=== PATIENT | male | born 1945 | race Caucasian/White ===

== ENCOUNTER 2017-08-11 14:21 | Emergency (ER) | payer MEDICARE, BC ==
[~2017-08-11] VITALS: Ht 172.7 cm; Wt 65.8 kg
[~2017-08-11 14:21] MED LIST: ADVAIR 100-501 EACH; LISINOPRIL10 MG PO; OMEPRAZOLE20 MG PO
[2017-08-11] MEDS ORDERED: ACETAMINOPHEN 1000 MG/100 ML IV STA (15:30)
[2017-08-11] MEDS ORDERED: MORPHINE SULFATE 2 MG/ML SYR IV STA (15:39)
[2017-08-11] MEDS ORDERED: ONDANSETRON HCL INJ 2 MG/ML VIAL IV ONE (16:00)
[2017-08-11 16:07] LABS: BASOPHILS % 0.4 % (0.0-1.0); EOSINOPHILS % 0.1 % (0.0-6.0); HEMATOCRIT 44.8 % (38.2-49.6); HEMOGLOBIN 15.9 g/dL (14.0-18.0); LYMPHOCYTES # (AUTO) 0.7 (1.0-3.2); LYMPHOCYTES % 8.9 % (18.0-39.1); MEAN CORPUSCULAR HEMOGLOBIN 32.5 pg (28-32); MEAN CORPUSCULAR HGB CONC 35.5 g/dL (31-35); MEAN CORPUSCULAR VOLUME 91.6 fL (81-99); MONOCYTES # (AUTO) 0.8 (0.2-0.8); NEUTROPHILS # (AUTO) 6.1 (2.1-6.9); NEUTROPHILS % 80.3 % (38.7-80.0); PLATELET COUNT 226 x10e3/uL (140-360); RED BLOOD COUNT 4.89 x10e6/uL (4.3-5.7); RED CELL DISTRIBUTION WIDTH 13.9 % (11.7-14.4)
[2017-08-11 16:15] LABS: INR 0.93; PROTHROMBIN TIME 12.9 seconds (11.9-14.5)
[2017-08-11 16:16] LABS: PARTIAL THROMBOPLASTIN TIME 28.5 seconds (23.8-35.5)
[2017-08-11 16:28] LABS: ALANINE AMINOTRANSFERASE 28 IU/L (0-55); ALBUMIN/GLOBULIN RATIO 1.1 (0.8-2.0); ALKALINE PHOSPHATASE 88 IU/L (40-150); AMYLASE 73 U/L (25-125); ANION GAP 15.9 mmol/L (8-16); BLOOD UREA NITROGEN 17 mg/dL (7-26); BUN/CREATININE RATIO 16 (6-25); CALCIUM 9.9 mg/dL (8.4-10.2); CARBON DIOXIDE 22 mmol/L (22-29); CHLORIDE 93 mmol/L (98-107); CREATINE KINASE 1190 IU/L (30-200); CREATININE, SERUM 1.04 mg/dL (0.72-1.25); EST GLOMERULAR FILTRATION RATE > 60 ML/MIN (60-); GLUCOSE 84 mg/dL (74-118); LIPASE 35 U/L (8-78); POTASSIUM 3.9 mmol/L (3.5-5.1); SODIUM 127 mmol/L (136-145)
--- NOTE | 2017-08-11 16:28 | Diagnostic Imaging Report ---
EXAMINATION: CHEST 2 VIEWS INDICATION: \S\fever \[id number] \S\[id number] COMPARISON: None FINDINGS: PA and lateral views TUBES and LINES: None. LUNGS: Lungs are well inflated. Lungs are clear. There is no evidence of pneumonia or pulmonary edema. PLEURA: No pleural effusion or pneumothorax. HEART AND MEDIASTINUM: The cardiomediastinal silhouette is unremarkable. Surgical clips overlie the posterior midline soft tissues. BONES AND SOFT TISSUES: No acute osseous lesion. Compression deformity of two lower thoracic vertebral bodies. Kyphoplasty cement in multiple upper lumbar vertebral bodies. Soft tissues are unremarkable. UPPER ABDOMEN: No free air under the diaphragm. IMPRESSION: No acute thoracic abnormality. Signed by: DR. Epifanio Galvan MD on 08/11/2017 4:25 PM
[2017-08-11 16:34] LABS: TROPONIN I 0.011 ng/mL (0-0.300)
--- NOTE | 2017-08-11 18:54 | Diagnostic Imaging Report ---
EXAM: CT Abdomen and Pelvis WITH contrast INDICATION: Abdominal pain and fever COMPARISON: Abdominal ultrasound from 09/17/2012 TECHNIQUE: Abdomen and pelvis were scanned utilizing a multidetector helical scanner from the lung base to the pubic symphysis after administration of IV contrast. Coronal and sagittal reformations were obtained. Routine protocol was performed. Scan was performed when during portal venous phase. IV CONTRAST: 100 mL of Isovue 370 ORAL CONTRAST: Water RADIATION DOSE: Total DLP: 222.7 mGy*cm Estimated effective dose: (DLP x 0.015 x size factor) mSv COMPLICATIONS: None FINDINGS: LINES and TUBES: None. LOWER THORAX: Left lower lobe calcified granuloma. Mild scarring in the right lower lobe. Hyperinflated lungs. Moderately sized hiatal hernia. HEPATOBILIARY: No focal hepatic lesions. No biliary ductal dilation. GALLBLADDER: No radio-opaque stones or sludge. No wall thickening. SPLEEN: No splenomegaly. Calcified granulomas. PANCREAS: No focal masses or ductal dilatation. ADRENALS: No adrenal nodules KIDNEYS/URETERS: Kidneys enhance symmetrically. No hydronephrosis. No cystic or solid mass lesions. No stones. GI TRACT: No abnormal distention, wall thickening, or evidence of bowel obstruction. Scattered diverticulosis throughout the sigmoid colon with associated wall thickening and minimal surrounding fat stranding, better seen on coronal image 75. No surrounding fluid collections. Appendix is normal. No fat stranding surrounding the appendix. This is better seen on coronal image 54. PELVIC ORGANS/BLADDER: Unremarkable. LYMPH NODES: No lymphadenopathy. VESSELS: Tortuous thoracic aorta with associated moderate calcifications. Small partially thrombosed fusiform aneurysm of the infrarenal abdominal aorta measuring up to 3.7 cm. Moderate atherosclerotic calcifications of the pelvic arteries. PERITONEUM / RETROPERITONEUM: No free air or fluid. BONES: Multiple wedge compression deformities in the lower thoracic and lumbar spine, worse at T12. Kyphoplasty at L3 and L4 vertebral bodies. SOFT TISSUES: Unremarkable. IMPRESSION: 1. Diverticulosis throughout the sigmoid colon with associated mild wall thickening may represent an early sign of diverticulitis. 2. Infrarenal abdominal aortic aneurysm (3.7 cm). Recommend follow-up CTA abdomen and pelvis in 6-12 months. Signed by: Dr. Niki Gonzales M.D. on 08/11/2017 6:50 PM
[2017-08-11] MEDS ORDERED: SODIUM CHLORIDE 0.9% 50ML 50 ML ONE (22:37)
[2017-08-11] MEDS ORDERED: IOPAMIDOL 370 MG/ML 200 ML INFUS..BTL INJ ONE (22:37)
== END 2017-08-11 20:21 | disposition home or self-care (01) ==
LOC: ER 14:21
DX: R50.9 Fever, unspecified (principal); R05 Cough; R10.11 Right upper quadrant pain; R10.84 Generalized abdominal pain; K57.30 Diverticulosis of large intestine without perforation or abscess without bleeding; I71.4 Abdominal aortic aneurysm, without rupture; I10 Essential (primary) hypertension; J98.4 Other disorders of lung
CPT/HCPCS: 36415; 71020; 74177; 80053; 82150; 82550; 82553; 83605; 83690; 84484; 85025; 85610; 85730; 87040; 87400; 93005; 99284; J2270; J2405; Q9967

== ENCOUNTER 2020-02-03 16:50 | Inpatient (IN) | payer MEDICARE, BC, OTHER ==
[~2020-02-03] VITALS: Ht 170.2 cm; Wt 65.8 kg
[2020-02-03] MEDS ORDERED: SODIUM CHLORIDE 0.9% 1000ML 1,000 ML IV STA (17:34)
[2020-02-03 18:29] LABS: BASOPHILS # (AUTO) 0.1 (0.0-0.1); BASOPHILS % 0.5 % (0.0-1.0); EOSINOPHILS # (AUTO) 0.2 (0.0-0.4); EOSINOPHILS % 1.5 % (0.0-6.0); HEMATOCRIT 42.3 % (38.2-49.6); HEMOGLOBIN 14.2 g/dL (14.0-18.0); LYMPHOCYTES # (AUTO) 1.4 (1.0-3.2); LYMPHOCYTES % 13.6 % (18.0-39.1); MEAN CORPUSCULAR HEMOGLOBIN 30.5 pg (28-32); MEAN CORPUSCULAR HGB CONC 33.6 g/dL (31-35); MONOCYTES % 9.9 % (4.4-11.3); NEUTROPHILS # (AUTO) 7.4 (2.1-6.9); NEUTROPHILS % 74.1 % (38.7-80.0); PLATELET COUNT 255 x10e3/uL (140-360); RED BLOOD COUNT 4.65 x10e6/uL (4.3-5.7); RED CELL DISTRIBUTION WIDTH 13.2 % (11.7-14.4)
[2020-02-03 18:47] LABS: ALANINE AMINOTRANSFERASE 17 IU/L (0-55); ALBUMIN 3.8 g/dL (3.5-5.0); ALBUMIN/GLOBULIN RATIO 1.3 (0.8-2.0); ALKALINE PHOSPHATASE 69 IU/L (40-150); ANION GAP 10.7 mmol/L (8-16); BLOOD UREA NITROGEN 15 mg/dL (7-26); BUN/CREATININE RATIO 17 (6-25); CALCIUM 9.4 mg/dL (8.4-10.2); CARBON DIOXIDE 23 mmol/L (22-29); CHLORIDE 108 mmol/L (98-107); CREATINE KINASE 216 IU/L (30-200); CREATININE, SERUM 0.89 mg/dL (0.72-1.25); EST GLOMERULAR FILTRATION RATE > 60 ML/MIN (60-); GLUCOSE 99 mg/dL (74-118); POTASSIUM 3.7 mmol/L (3.5-5.1); SODIUM 138 mmol/L (136-145)
--- NOTE | 2020-02-03 18:56 | NUR ---
report given to Walt STARKEY.
--- NOTE | 2020-02-03 19:01 | Diagnostic Imaging Report ---
Examination: CT head without contrast Clinical Indication: Fall; syncope. Technique: Transaxial noncontrast images from the skull base through the vertex were obtained. Sagittal and coronal reformatted images were done. Dose modulation, iterative reconstruction, and/or weight based adjustment of the mA/kV was utilized to reduce the radiation dose to as low as reasonably achievable. Comparison: 2013 scans cannot be visualized. Findings: Scalp: No abnormalities. Bones: Intact. No fractures. No blastic or lytic lesions. Brain sulci: Appropriate for patient's age. Ventricles: Normal in size and configuration. No hydrocephalus. . Extra-axial space: No abnormalities. Parenchyma: There are subtle confluent areas of low-attenuation within subcortical and periventricular white matter, nonspecific, but could represent microvascular ischemic disease. Left caudate head and body tiny chronic lacunar infarcts. No masses, hemorrhage, or acute or chronic cortical based vascular insults. Suprasellar region: No abnormalities. Craniocervical junction: The foramen magnum is patent. No Chiari one malformation. Incidental findings: Atherosclerotic calcification of the cavernous and supraclinoid internal carotid and V4 segments of the bilateral vertebral arteries. Impression: 1. No acute intracranial finding. 2. Mild chronic microvascular ischemic change. Tiny chronic lacunar infarcts of the left caudate head and body. Signed by: Dr. Manasa Medina M.D. on 02/03/2020 6:58 PM
[2020-02-03 19:03] LABS: INR 0.89; PROTHROMBIN TIME 12.6 seconds (11.9-14.5)
--- NOTE | 2020-02-03 19:10 | Diagnostic Imaging Report ---
Examination: CT CERVICAL SPINE WO HISTORY:Neck pain and injury after fall. COMPARISON:None. TECHNIQUE: Multidetector helical axial images were obtained without contrast from the foramen magnum to T1. Coronal and sagittal reformatted images were done. Bone and soft tissue windows were evaluated. Dose modulation, iterative reconstruction, and/or weight based adjustment of the mA/kV was utilized to reduce the radiation dose to as low as reasonably achievable. FINDINGS: Alignment:Normal lordosis. Grade I anterolisthesis of C2 on C3 with severe left facet arthropathy. Minimal retrolisthesis of C4-C5 and C5-C6. Vertebrae: Normal height and density. No acute fracture, infection or neoplasm. Sclerosis of the C3 and C4 vertebrae. Disc space heights: Moderate height loss at C3-C4 and C4-C5. Caliber of spinal canal: Developmentally normal. Posterior fossa and craniocervical junction: Foramen magnum patent. No Chiari 1 malformation. Soft tissues: Atherosclerosis of the bilateral carotid bifurcations. Degenerative changes: Disc osteophytes from C3-C4 through C6-C7 without canal stenosis. No disc herniation. Visualized lung apices: Bilateral interstitial emphysema. IMPRESSION: No acute abnormalities. Signed by: Dr. Manasa Medina M.D. on 02/03/2020 7:06 PM
[2020-02-03 19:29] LABS: CLARITY,URINE CLEAR (CLEAR); COLOR,URINE YELLOW (YELLOW); LEUKOCYTE ESTERASE ,URINE NEGATIVE (NEGATIVE); NITRITE,URINE NEGATIVE (NEGATIVE); PROTEIN,URINE DIPSTICK NEGATIVE (NEGATIVE)
[2020-02-03 19:30] LABS: BACTERIA,URINE FEW /HPF; BILIRUBIN,URINE NEGATIVE (NEGATIVE); EPITHELIAL CELLS,URINE FEW /LPF; KETONES,URINE NEGATIVE (NEGATIVE); URINE UROBILINOGEN 0.2 mg/dL (0.2 - 1); WBC,URINE (MAN) 0-5 /HPF (0-5)
--- NOTE | 2020-02-03 19:43 | Diagnostic Imaging Report ---
EXAM: CT Chest WITHOUT contrast INDICATION: FALL, SYNCOPE, LEFT RIB PAIN COMPARISON: Chest radiographs from 08/11/2017 TECHNIQUE: Chest was scanned utilizing a multidetector helical scanner from the lung apex through the level of the adrenal glands without administration of IV contrast. Absence of intravenous contrast decreases sensitivity for detection of lymphadenopathy and vascular pathology. Coronal and sagittal reformations were obtained. Routine protocol was performed. IV CONTRAST: None COMPLICATIONS: None RADIATION DOSE: Total DLP: 1513.61 mGy*cm Estimated effective dose: (DLP x 0.014 x size factor) mSv CTDIvol has been reviewed. It is below the limits set by the Radiation Protocol Committee (RPC). Dose modulation, iterative reconstruction, and/or weight based adjustment of the mA/kV was utilized to reduce the radiation dose to as low as reasonably achievable. FINDINGS: LINES/ TUBES: None. LUNGS AND AIRWAYS: There is a spiculated nodule in the right upper lobe which measures approximately 9.5 x 8.5 cm (series 11 image 87). There are additional subcentimeter nodules in the left upper lobe (series 11 image 31, 67 and image 86). There are biapical pleural scarring. There are scattered calcified granulomas. There is background of paraseptal and centrilobular emphysematous changes. There are areas of reticulonodular opacities in the right lower lobe and lingular with tree-in-bud configuration. PLEURA: The pleural spaces are clear. HEART AND MEDIASTINUM: The thyroid gland is normal. No mediastinal, hilar or axillary lymphadenopathy. The heart is normal in size. There is no pericardial effusion. There is atherosclerotic calcification of the thoracic aortic arch and its branches as well as the coronary vessels. UPPER ABDOMEN: There is a moderately sized hiatal hernia. The start calcification of the proximal abdominal aorta and its branches. BONES: Multilevel degenerative disease of the spine. Additionally, there are chronic compression deformities of the thoracic and lumbar spine status vertebroplasty. Of the L2 vertebra. SOFT TISSUES: Unremarkable. IMPRESSION: 1. Spiculated nodule in the right upper lobe which measures approximately 9.5 x 8.5 cm. Recommend follow-up chest CT in 3 months to rule out malignancy. 2. Reticulonodular opacities in the right lower lobe and lingula in tree-in-bud configuration which may represent inflammatory or infectious process. Signed by: Roberto Santiago MD on 02/03/2020 7:40 PM
[2020-02-03] MEDS ORDERED: ASPIRIN 81 MG CHEW TAB PO ONE (19:45)
[2020-02-03] MEDS ORDERED: SODIUM CHLORIDE FLUSH 10 ML SYR INJ PRN (19:45)
[2020-02-03] MEDS ORDERED: ONDANSETRON HCL INJ 2MG/ML 2ML 2 MG/ML VIAL IV PRN (19:45)
--- NOTE | 2020-02-03 19:54 | Emergency Department Note ---
History of Present Illnes History of Present Illness Chief Complaint: General Medicine Complaints History of Present Illness This is a 74 year old male states last night he felt dizzy and passed out hitting his wooden floor unknown if he hit his head on blood thinners says heard him and picked him up stating he was out for about a minute denies n/v/d, C/O LEFT CHEST WALL PAIN Historian: Patient Arrival Mode: Car Blankbook Forwarder Required: No Onset (how long ago): day(s) (LAST NIGHT) Location: LEFT CHEST WALL Quality: PAIN Radiation: Reports non-radiation Severity: moderate Onset quality: sudden Timing of current episode: constant Progression: unchanged Chronicity: new Context: Denies recent illness Relieving factors: none Exacerbating factors: none Associated symptoms: Reports denies other symptoms Treatments prior to arrival: none Past Medical/Family History Physician Review I have reviewed the patient's past medical and family history. Any updates have been documented here. Past Medical History Recent Fever: No Clinical Suspicion of Infectio: No New/Unexplained Change in Ment: No Past Medical History: Hypertension, COPD Past Surgical History: Back Surgery Other Surgery: BACK SURGERIES Social History Smoking Cessation: Former smoker Counseling Performed: No Alcohol Use: None Any Illegal Drug Use: No TB Exposure/Symptoms: No Physically hurt or threatened: No Family History Family history of heart diseas: No Other Last Tetanus: UTD Any Pre-Existing Lines (PICC,: No Review of Systems Review of Systems Constitutional: Reports no symptoms EENTM: Reports no symptoms Cardiovascular: Reports as per HPI, Reports chest pain, Reports syncope Respiratory: Reports no symptoms Gastrointestinal: Reports no symptoms Genitourinary: Reports no symptoms Musculoskeletal: Reports no symptoms Integumentary: Reports no symptoms Neurological: Reports no symptoms Psychological: Reports no symptoms Endocrine: Reports no symptoms Hematological/Lymphatic: Reports no symptoms Physical Exam Related Data Allergies: Coded Allergies: No Known Allergies (Unverified , 10/09/12) Triage Vital Signs Vital Signs Date Time Temp Pulse Resp B/P (MAP) Pulse Ox O2 Delivery O2 Flow Rate FiO2 02/03/20 17:29 99.3 98 18 170/87 96 Room Air Vital signs reviewed: Yes Physical Exam CONSTITUTIONAL Constitutional: Present well-developed, Present well-nourished HENT HENT: Present normocephalic, Present atraumatic, Present oropharynx clear/moist, Present nose normal HENT L/R: Present left ext ear normal, Present right ext ear normal EYES Eyes: Reports PERRL, Reports conjunctivae normal NECK Neck: Present ROM normal PULMONARY Pulmonary: Present effort normal, Present breath sounds normal CARDIOVASCULAR Cardiovascular: Present other (LEFT LATERAL LOWER RIB TENDERNESS) GASTROINTESTINAL Abdominal: Present soft, Present nontender, Present bowel sounds normal GENITOURINARY Genitourinary: Present exam deferred SKIN Skin: Present warm, Present dry MUSCULOSKELETAL Musculoskeletal: Present ROM normal NEUROLOGICAL Neurological: Present alert, Present oriented x 3, Present no gross motor or sensory deficits PSYCHOLOGICAL Psychological: Present mood/affect normal, Present judgement normal Results Laboratory Result Diagram: 02/03/20 1740 02/03/20 1740 Laboratory Laboratory Tests Test 02/03/20 18:13 02/03/20 17:40 White Blood Count 10.02 x10e3/uL (4.8-10.8) Red Blood Count 4.65 x10e6/uL (4.3-5.7) Hemoglobin 14.2 g/dL (14.0-18.0) Hematocrit 42.3 % (38.2-49.6) Mean Corpuscular Volume 91.0 fL (81-99) Mean Corpuscular Hemoglobin 30.5 pg (28-32) Mean Corpuscular Hemoglobin Concent 33.6 g/dL (31-35) Red Cell Distribution Width 13.2 % (11.7-14.4) Platelet Count 255 x10e3/uL (140-360) Neutrophils (%) (Auto) 74.1 % (38.7-80.0) Lymphocytes (%) (Auto) 13.6 % (18.0-39.1) Monocytes (%) (Auto) 9.9 % (4.4-11.3) Eosinophils (%) (Auto) 1.5 % (0.0-6.0) Basophils (%) (Auto) 0.5 % (0.0-1.0) Neutrophils # (Auto) 7.4 (2.1-6.9) Lymphocytes # (Auto) 1.4 (1.0-3.2) Monocytes # (Auto) 1.0 (0.2-0.8) Eosinophils # (Auto) 0.2 (0.0-0.4) Basophils # (Auto) 0.1 (0.0-0.1) Absolute Immature Granulocyte (auto 0.04 x10e3/uL (0-0.1) Prothrombin Time 12.6 seconds (11.9-14.5) Prothromb Time International Ratio 0.89 Urine Color Yellow (YELLOW) Urine Clarity Clear (CLEAR) Urine pH 6 (5 - 7) Urine Specific [place] 1.020 (1.010-1.025) Urine Protein Negative (NEGATIVE) Urine Glucose (UA) Negative (NEGATIVE) Urine Ketones Negative (NEGATIVE) Urine Blood Negative (NEGATIVE) Urine Nitrite Negative (NEGATIVE) Urine Bilirubin Negative (NEGATIVE) Urine Urobilinogen 0.2 mg/dL (0.2 - 1) Urine Leukocyte Esterase Negative (NEGATIVE) Urine RBC None /HPF (0-5) Urine WBC 0-5 /HPF (0-5) Urine Epithelial Cells Few /LPF (NONE) Urine Bacteria Few /HPF (NONE) Sodium Level 138 mmol/L (136-145) Potassium Level 3.7 mmol/L (3.5-5.1) Chloride Level 108 mmol/L (98-107) Carbon Dioxide Level 23 mmol/L (22-29) Anion Gap 10.7 mmol/L (8-16) Blood Urea Nitrogen 15 mg/dL (7-26) Creatinine 0.89 mg/dL (0.72-1.25) Estimat Glomerular Filtration Rate > 60 ML/MIN (60-) BUN/Creatinine Ratio 17 (6-25) Glucose Level 99 mg/dL (74-118) Calcium Level 9.4 mg/dL (8.4-10.2) Total Bilirubin 0.7 mg/dL (0.2-1.2) Aspartate Amino Transf (AST/SGOT) 23 IU/L (5-34) Alanine Aminotransferase (ALT/SGPT) 17 IU/L (0-55) Alkaline Phosphatase 69 IU/L (40-150) Creatine Kinase 216 IU/L (30-200) Creatine Kinase MB 3.10 ng/mL (0-5.0) Troponin I 0.006 ng/mL (0-0.300) Total Protein 6.8 g/dL (6.5-8.1) Albumin 3.8 g/dL (3.5-5.0) Globulin 3.0 g/dL (2.3-3.5) Albumin/Globulin Ratio 1.3 (0.8-2.0) Lab results reviewed: Yes Imaging Imaging results reviewed: Yes Impressions Procedure: [id number] CT/CT CHEST WO Exam Date: 02/03/20 Exam Time: 1820 REPORT STATUS: Signed EXAM: CT Chest WITHOUT contrast INDICATION: FALL, SYNCOPE, LEFT RIB PAIN COMPARISON: Chest radiographs from 08/11/2017 TECHNIQUE: Chest was scanned utilizing a multidetector helical scanner from the lung apex through the level of the adrenal glands without administration of IV contrast. Absence of intravenous contrast decreases sensitivity for detection of lymphadenopathy and vascular pathology. Coronal and sagittal reformations were obtained. Routine protocol was performed. IV CONTRAST: None COMPLICATIONS: None RADIATION DOSE: Total DLP: 1513.61 mGy*cm Estimated effective dose: (DLP x 0.014 x size factor) mSv CTDIvol has been reviewed. It is below the limits set by the Radiation Protocol Committee (RPC). Dose modulation, iterative reconstruction, and/or weight based adjustment of the mA/kV was utilized to reduce the radiation dose to as low as reasonably achievable. FINDINGS: LINES/ TUBES: None. LUNGS AND AIRWAYS: There is a spiculated nodule in the right upper lobe which measures approximately 9.5 x 8.5 cm (series 11 image 87). There are additional subcentimeter nodules in the left upper lobe (series 11 image 31, 67 and image 86). There are biapical pleural scarring. There are scattered calcified granulomas. There is background of paraseptal and centrilobular emphysematous changes. There are areas of reticulonodular opacities in the right lower lobe and lingular with tree-in-bud configuration. PLEURA: The pleural spaces are clear. HEART AND MEDIASTINUM: The thyroid gland is normal. No mediastinal, hilar or axillary lymphadenopathy. The heart is normal in size. There is no pericardial effusion. There is atherosclerotic calcification of the thoracic aortic arch and its branches as well as the coronary vessels. UPPER ABDOMEN: There is a moderately sized hiatal hernia. The start calcification of the proximal abdominal aorta and its branches. BONES: Multilevel degenerative disease of the spine. Additionally, there are chronic compression deformities of the thoracic and lumbar spine status vertebroplasty. Of the L2 vertebra. SOFT TISSUES: Unremarkable. IMPRESSION: 1. Spiculated nodule in the right upper lobe which measures approximately 9.5 x 8.5 cm. Recommend follow-up chest CT in 3 months to rule out malignancy. 2. Reticulonodular opacities in the right lower lobe and lingula in tree-in-bud configuration which may represent inflammatory or infectious process. Signed by: Roberto Santiago MD on 02/03/2020 7:40 PM Procedure: [id number] CT/CT BRAIN WO Exam Date: 02/03/20 Exam Time: 1820 REPORT STATUS: Signed Examination: CT head without contrast Clinical Indication: Fall; syncope. Technique: Transaxial noncontrast images from the skull base through the vertex were obtained. Sagittal and coronal reformatted images were done. Dose modulation, iterative reconstruction, and/or weight based adjustment of the mA/kV was utilized to reduce the radiation dose to as low as reasonably achievable. Comparison: 2013 scans cannot be visualized. Findings: Scalp: No abnormalities. Bones: Intact. No fractures. No blastic or lytic lesions. Brain sulci: Appropriate for patient's age. Ventricles: Normal in size and configuration. No hydrocephalus. . Extra-axial space: No abnormalities. Parenchyma: There are subtle confluent areas of low-attenuation within subcortical and periventricular white matter, nonspecific, but could represent microvascular ischemic disease. Left caudate head and body tiny chronic lacunar infarcts. No masses, hemorrhage, or acute or chronic cortical based vascular insults. Suprasellar region: No abnormalities. Craniocervical junction: The foramen magnum is patent. No Chiari one malformation. Incidental findings: Atherosclerotic calcification of the cavernous and supraclinoid internal carotid and V4 segments of the bilateral vertebral arteries. Impression: 1. No acute intracranial finding. 2. Mild chronic microvascular ischemic change. Tiny chronic lacunar infarcts of the left caudate head and body. Signed by: Dr. Manasa Medina M.D. on 02/03/2020 6:58 PM Procedures 12 Lead ECG Interpretation ECG Interpretation : ECG: ECG 1 Blankbook Forwarder: Interpreted by ED physician Date: Feb 03, 2020 Time: 17:34 Rhythm: sinus rhythm Rate: normal (91) QRS axis: normal ST segments normal: Yes T waves normal: Yes Clinical Impression: abnormal ECG Additional Comments LAE, PAC'S Assessment & Plan Medical Decision Making MDM SYNCOPE/FALL - CBC,CHEM'S, ECG, CARDIAC ENZYMES, COAG'S, CT BRAIN/C-SPINE/CT CHEST - R/O CEREBRAL BLEED, RIB FX'S, HEMOTHORAX/PNEUMOTHORAX, STEMI/NSTEMI Reassessment Reassessment ADMIT KILLAM Assessment & Plan Final Impression: (1) Syncope (2) Lung mass (3) Pneumonia (4) Chest wall pain Depart Disposition: ADMITTED Last Vital Signs Date Time Temp Pulse Resp B/P (MAP) Pulse Ox O2 Delivery O2 Flow Rate FiO2 02/03/20 19:26 96.7 82 23 123/71 98 02/03/20 17:29 Room Air Home Meds Reported Medications Omeprazole (OMEPRAZOLE) 20 Mg Capsule.dr, 20 MG PO DAILY 11/15/12 Fluticasone/Salmeterol (ADVAIR 100-50 DISKUS) 1 Each Disk.w.dev 10/07/12 Lisinopril (LISINOPRIL) 10 Mg Tablet, 10 MG PO DAILY 10/07/12 Medications in the ED Sodium Chloride 1,000 ml @ 0 mls/hr Q0M STAT IV Last administered on 02/03/20at 18:00; Admin Dose 999 MLS/HR; Start 02/03/20 at 17:34; Stop 02/03/20 at 17:38; Status DC IRMA RICK MD Feb 03, 2020 19:54
[2020-02-03] MEDS: CEFTRIAXONE SOD 1 GM/NS 50 ML 50 ML IV SCH (20:05)
[2020-02-03 20:24] LABS: PARTIAL THROMBOPLASTIN TIME 26.2 seconds (23.8-35.5)
[2020-02-03] MEDS: AZITHROMYCIN 500MG/NS 250 ML 250 ML IV SCH (20:26)
[2020-02-03] MEDS ORDERED: ACETAMINOPHEN 325 MG TAB PO PRN (20:30)
[2020-02-03] MEDS ORDERED: CLOPIDOGREL75 MG PO (20:39)
[2020-02-03] MEDS ORDERED: PROAIR HFA INH8.5 GM INH (20:43)
[2020-02-03] MEDS ORDERED: CARTIA XT180 MG PO (20:43)
[2020-02-03] MEDS ORDERED: TRELEGY ELLIPT1 EACH INH (20:43)
[2020-02-03] MEDS ORDERED: VALACYCLOVIR1000 MG PO (20:43)
[2020-02-03 22:55] VITALS: BP 140/78
[2020-02-04] VITALS (8 sets, daily range): BP systolic 136–146; BP diastolic 67–84
[2020-02-04 07:12] LABS: CREATINE KINASE MB 3.2 ng/mL (0-5.0)
[2020-02-04] MEDS: AZITHROMYCIN 500MG/NS 250 ML 250 ML IV SCH (10:04)
[2020-02-04] MEDS ORDERED: SODIUM CHLORIDE 0.9% 250ML 250 ML ONE (10:10)
[2020-02-04 14:17] LABS: CREATINE KINASE MB 3.2 ng/mL (0-5.0)
[2020-02-04] MEDS ORDERED: ACETAMINOPHEN/CODEINE 300MG - 30MG TAB PO PRN (15:15)
[2020-02-04] MEDS ORDERED: TRAMADOL HCL 50 MG TAB PO PRN (15:15)
[2020-02-04] MEDS ORDERED: ALBUTEROL SULFATE HFA 8GM INHALATION AEROSOL INH PRN (15:15)
--- NOTE | 2020-02-04 16:50 | Consultation ---
DATE OF CONSULTATION: Pulmonary Critical Care Consultation CHIEF COMPLAINT: Abnormal x-ray. HISTORY OF PRESENT ILLNESS: The patient is a 74-year-old man with a history of COPD. He uses Trelegy at home as well as rescue inhalers. He came to the hospital because of some syncope. He was found to have an abnormal x-ray with possible pneumonia and a possible lung mass. PAST MEDICAL HISTORY: 1. COPD. 2. Hypertension. PAST SURGICAL HISTORY: Noncontributory. ALLERGIES: NO KNOWN DRUG ALLERGIES. FAMILY HISTORY: Family history is noncontributory. REVIEW OF SYSTEMS: The patient has no headache. He has no fever. He has no neck pain or chest pain. He did have some palpitations. He reports dyspnea on exertion. He has no abdominal pain. He has no nausea or vomiting. He has no leg edema. He did have some syncope. PHYSICAL EXAMINATION: VITAL SIGNS: The patient is afebrile. The blood pressure is 140/73, saturation is 99%. Pulse is 61. HEENT: No facial swelling or erythema. CARDIAC: Regular rate and rhythm with normal S1, S2. LUNGS: Auscultation of lungs reveals rhonchorous breath sounds bilaterally. There is no wheezing. ABDOMEN: Soft, nontender. There is no rebound or guarding. EXTREMITIES: No leg edema or calf tenderness. There is no cyanosis or clubbing. SKIN: No rashes. NEUROLOGICAL: No focal abnormalities. LABORATORY DATA: White blood cell count is 10 and hemoglobin is 14.2. The platelet count is 255. BUN to creatinine ratio is normal. Other electrolytes are within normal limits. RADIOGRAPHIC DATA: CT scan of the chest shows a spiculated nodule in the right upper lung measuring 9.5 x 8.5 cm. There are also some nodule opacities in the right lower lobe and lingula. There is no obvious mediastinal adenopathy. IMPRESSION: 1. Pulmonary nodule. 2. Chronic obstructive pulmonary disease. PLAN: 1. CT-guided biopsy to rule out lung bryson. 2. Continue current inhaler regimen. 3. Complete evaluation for syncope. Harsh Srivastava MD [facility] /[id number]
[2020-02-04] MEDS ORDERED: HYDRALAZINE HCL 20 MG/ML VIAL IV PRN (18:15)
[2020-02-04] MEDS ORDERED: POLYETHYLENE GLYCOL 3350 17 GM PACK PO PRN (18:15)
[2020-02-04] MEDS: CEFTRIAXONE SOD 1 GM/NS 50 ML 50 ML IV SCH (20:56)
[2020-02-04] MEDS ORDERED: TEMAZEPAM 7.5 MG CAP PO PRN (21:00)
[2020-02-05] VITALS (9 sets, daily range): BP systolic 127–149; BP diastolic 65–87
[2020-02-05] MEDS ORDERED: FLUTICASONE INH SCH (06:00)
[2020-02-05] MEDS ORDERED: VILANTER INH SCH (06:00)
[2020-02-05] MEDS ORDERED: [UNRECOGNIZED DRUG - OTHER] INH SCH (06:00)
[2020-02-05 06:44] LABS: BASOPHILS % 0.6 % (0.0-1.0); EOSINOPHILS # (AUTO) 0.3 (0.0-0.4); EOSINOPHILS % 3.7 % (0.0-6.0); HEMATOCRIT 41.9 % (38.2-49.6); HEMOGLOBIN 14.2 g/dL (14.0-18.0); LYMPHOCYTES # (AUTO) 1.4 (1.0-3.2); LYMPHOCYTES % 19.6 % (18.0-39.1); MEAN CORPUSCULAR HEMOGLOBIN 31.8 pg (28-32); MEAN CORPUSCULAR HGB CONC 33.9 g/dL (31-35); MEAN CORPUSCULAR VOLUME 93.9 fL (81-99); MONOCYTES # (AUTO) 0.8 (0.2-0.8); MONOCYTES % 10.3 % (4.4-11.3); NEUTROPHILS # (AUTO) 4.7 (2.1-6.9); NEUTROPHILS % 65.1 % (38.7-80.0); PLATELET COUNT 235 x10e3/uL (140-360); RED BLOOD COUNT 4.46 x10e6/uL (4.3-5.7); RED CELL DISTRIBUTION WIDTH 13.4 % (11.7-14.4)
--- NOTE | 2020-02-05 06:45 | NUR ---
Patient condition throughout the night was stable, patient endorsed to next shift for continuity of care.
--- NOTE | 2020-02-05 07:00 | NUR ---
RECEIVED PT ON BEDSIDE REPORT. NO COMPLAINS OF PAIN AT THIS TIME
--- NOTE | 2020-02-05 07:00 | NUR ---
Patient condition throughout the night was stable, patient endorsed to next shift for continuity of care.
[2020-02-05 07:16] LABS: ANION GAP 12.4 mmol/L (8-16); BLOOD UREA NITROGEN 12 mg/dL (7-26); BUN/CREATININE RATIO 16 (6-25); CARBON DIOXIDE 26 mmol/L (22-29); CHLORIDE 108 mmol/L (98-107); CREATININE, SERUM 0.77 mg/dL (0.72-1.25); EST GLOMERULAR FILTRATION RATE > 60 ML/MIN (60-); GLUCOSE 81 mg/dL (74-118); MAGNESIUM 1.9 MG/DL (1.3-2.1); PHOSPHORUS 2.4 MG/DL (2.3-4.7); POTASSIUM 4.4 mmol/L (3.5-5.1); SODIUM 142 mmol/L (136-145)
[2020-02-05 07:29] LABS: FREE T4 (FREE THYROXINE) 0.93 ng/dL (0.8-1.8); THYROID STIMULATING HORMONE 1.219 uIU/mL (0.350-4.940)
[2020-02-05] MEDS ORDERED: CLOPIDOGREL BISULFATE 75 MG TAB PO SCH (09:00)
[2020-02-05] MEDS ORDERED: DILTIAZEM HCL 180 MG CAP ER PO SCH (09:00)
[2020-02-05] MEDS: DOCUSATE SODIUM 100 MG CAP PO SCH ×2 (09:00→10:18)
[2020-02-05] MEDS ORDERED: LISINOPRIL 10 MG TAB PO SCH (09:00)
[2020-02-05] MEDS: FAMOTIDINE 20 MG/2 ML VIAL IV SCH (09:00)
[2020-02-05] MEDS: AZITHROMYCIN 500MG/NS 250 ML 250 ML IV SCH (09:00)
--- NOTE | 2020-02-05 10:15 | NUR ---
DR EDGAR IN TO SEE PT.
--- NOTE | 2020-02-05 17:09 | Progress Note ---
DATE: Pulmonary Critical Care Progress Note SUBJECTIVE: The patient is eager to go home. He feels better. PHYSICAL EXAMINATION: VITAL SIGNS: Stable. HEENT: Shows no facial swelling or erythema. CARDIAC: Reveals regular rate and rhythm with normal S1 and S2. LUNGS: Auscultation of lungs reveals rhonchorous breath sounds bilaterally. There is no wheezing. ABDOMEN: Soft and nontender. There is no rebound or guarding. EXTREMITIES: Shows no leg edema or calf tenderness. There is no cyanosis or clubbing. SKIN: Shows no rashes. IMPRESSION: 1. Right upper lobe nodule. 2. Chronic obstructive pulmonary disease. PLAN: 1. Arrange for CT-guided biopsy as an outpatient. 2. Alternatively, the patient could have a repeat CT scan in 3 months for followup. 3. If the patient declines a biopsy, second choice would be a repeat CT scan in 3 months with radiographic followup. 4. Continue current regimen for COPD at home. MD CHENTE Zheng/DANIELLE /[id number]
--- NOTE | 2020-02-05 19:00 | NUR ---
PT WAITING FOR DR TALA CAMARENA TO DO DISCHARGE PAPER WORK AND PT WILL BE DISCHARGED.
[2020-02-05] MEDS ORDERED: ACETAMINOPHEN325 M1 PO (20:55)
--- NOTE | 2020-02-05 21:50 | NUR ---
Patient given discharge instructions and prescription. Patient verbalized understanding. IV removed from left forearm with tip intact. Telemetry box also removed. Patient transported to private auto via W/C. Patient in stable condition. Vital signs WNL.
--- NOTE | 2020-02-06 00:06 | Discharge Summary ---
PRIMARY CARE PHYSICIAN: Dr. Enrique Bell. CONSULTING PHYSICIAN: Dr. Harsh Srivastava. CHIEF COMPLAINT: Fall with syncope. HISTORY OF PRESENT ILLNESS: The patient is a 74-year-old male, who felt dizzy on 02/01, passed out hitting his wooden floor, but unknown if he hit his head. His heard the fall and picked him up, stated he was out about 1 minute or less. He had left chest wall pain in the emergency department. His chest CT showed a spiculated nodule right upper lobe of the lung. He admitted for syncope, lung mass, pneumonia, and chest wall pain. Please see H and P for past history. ADMITTING DIAGNOSES: 1. Status post fall with syncope and left chest wall pain. 2. Right upper lung nodule and an ex-smoker with 25 pack years. 3. Right lower lobe community-acquired pneumonia, present on admission. 4. Chronic obstructive pulmonary disease without acute exacerbation. 5. Controlled hypertension. 6. History of abdominal aortic aneurysm. 7. Peripheral arterial disease. 8. Chronic low back pain. Order was entered for Case Management to please arrange for outpatient right upper lobe ultrasound guided lung biopsy and coordinate with Dr. Srivastava and/or his office staff if needed, as the patient was originally scheduled for a lung biopsy here in the hospital. However, Interventional Radiology busy, especially with coronavirus pandemic underway. The patient also opted that he would prefer an outpatient biopsy. On 02/02, WBCs 10.02. Otherwise, CBC within normal limits as was his coagulation profile, BUN 12, creatinine 0.77, and estimated GFR greater than 60 today. He had 3 sets of cardiac enzymes, all normal. TSH 1.219. Creatine kinase 216, improved to 153 and then 130. Urinalysis was negative. Coronavirus by PCR was collected on 02/02 and remains pending. This particular sample was sent to [facility] to [place], [place]. It has only been 2 days out of an expected 4 day turn around. Thus, his results are expected on or about 02/06. Blood cultures x2 show no growth after 48 hours. Final urine culture show no growth after [address] of the brain done on 02/02, showed no acute intracranial finding. Mild chronic microvascular ischemic change. Tiny chronic lacunar infarcts of the left caudate, head and body. CT of the cervical spine showed no acute abnormalities. CT of the chest on 02/02, showed a spiculated nodule in the right upper lobe, which measured approximately 9.5 x 8.5 cm. Recommend followup chest CT in 3 months to rule out malignancy. Reticulonodular opacities in the right lower lobe and lingula and tree-in-bud configuration, which may represent inflammatory or infectious process. A 12-lead EKG done on 02/02, showed a sinus rhythm with a premature atrial complex with a ventricular rate of 91 beats per minute. Echocardiogram done on 02/02, showed an estimated ejection fraction of 65% to 70%. Bilateral carotid Doppler ultrasound showed evidence of carotid disease without significant carotid stenosis bilaterally as well as possible evidence of significant carotid stenosis in the right carotid ICA and ECA as well as possible evidence of significant carotid stenosis in the bulb and CA of the left carotid. Dr. Srivastava with Pulmonology saw and evaluated the patient today. The patient was eager to go home as he feels better. Per his plan, arrange for CT-guided biopsy as an outpatient. Alternatively, the patient could have a repeat CT scan in 3 months for followup. If the patient declines a biopsy, second choice would be a repeat CT scan in 3 months with radiographic follow up. Continue current regimen for COPD at home. Orthostatic vital signs were completed on 02/04, blood pressure 141/76 supine, which was at midnight at 2 a.m. blood pressure 140/77 sitting, and then blood pressure 138/77 standing at 2:05 in the morning. The patient will be discharged home today on a cardiac diet. Activity level as tolerated. Follow up with PCP, Dr. Enrique Bell in 1-2 weeks. Followup with pulmonology as directed. Dictated by Saman Sotomayor NP Nadir Rose MD HWP/MODL /[id number]
--- NOTE | 2020-02-06 01:06 | Discharge Summary ---
CONSULTING PHYSICIAN: Dr. Harsh Srivastava with Pulmonology. CHIEF COMPLAINT: Fall and syncope. HISTORY OF PRESENT ILLNESS: The patient is a 74-year-old man, who felt dizzy on 02/01, passed out hitting his wooden floor, but was unsure if he hit his head. His heard the fall and picked him up, stated he was out about a minute. He had left chest wall pain in the emergency room. The CT of the chest showed spiculated nodule in right upper lobe of the lung, admitted for syncope, lung mass, pneumonia, and chest wall pain. A fine-needle right upper lobe lung biopsy ultrasound-guided was scheduled, however, Interventional Radiology unable to do that at this time given the coronavirus pandemic and the patient stated he would rather just go ahead and do it on an outpatient basis. Please see H and P for past history. ADMITTING DIAGNOSES: 1. Status post fall, right lower lobe community-acquired pneumonia, present on admission. 2. Chronic obstructive pulmonary disease without acute exacerbation. 3. Controlled hypertension. 4. History of abdominal aortic aneurysm. 5. Peripheral arterial disease. 6. Chronic low back pain. DISCHARGE DIAGNOSES: 1. Status post fall, right lower lobe community-acquired pneumonia, present on admission. 2. Chronic obstructive pulmonary disease without acute exacerbation. 3. Controlled hypertension. 4. History of abdominal aortic aneurysm. 5. Peripheral arterial disease. 6. Chronic low back pain. On 02/02, WBCs 10.02, hemoglobin 14.2, hematocrit 42.3, platelets 255. Sodium 138, potassium 3.7, chloride 108, CO2 23, anion gap 10.7, BUN 15, creatinine 0.89, estimated GFR greater than 60, glucose 99, calcium 9.4, total bilirubin 0.7, AST 23, ALT 17, alkaline phosphatase 69. Creatine kinase 216, CK-MB 3.1, troponin I 0.006. Total protein 6.8, albumin 3.8. Urinalysis negative, few bacteria. Coronavirus PCR obtained on 02/02 remains pending. The sample was sent C[facility] to [facility], which was 2 days ago. The usual turnaround time is about 4 days. Thus, the result is expected to come out on or about 02/06. No growth after 48 hours from the blood cultures. Final urine culture was negative. No growth after 36-[address] of the brain done on 02/02 showed no acute intracranial finding. Mild chronic microvascular ischemic change. Tiny chronic lacunar infarcts of the left caudate head and body. CT of the cervical spine done on 02/02, showed no acute abnormalities. CT of the chest done 02/02, showed a spiculated nodule in the right upper lobe, which measures approximately 9.5 x 8.5 cm. Per radiologist recommend followup chest CT in 3 months to rule out malignancy. Reticulonodular opacities in the right lower lobe and lingula, and tree-in-bud configuration, which may represent inflammatory or infectious process. Bilateral carotid Doppler ultrasound was done due to reports of syncope by the patient. There is evidence of carotid disease without significant carotid stenosis bilaterally. There was possible evidence of significant carotid stenosis in the ICA and ECA on the right carotid, possible evidence of significant carotid stenosis in the bulb and CA of the left carotid. Echocardiogram done 02/02, showed estimated ejection fraction of 65% to 70% calcified aortic valves, mild MR and TR. A 12-lead EKG done on 02/02, showed sinus rhythm with premature atrial complex, ventricular rate 91 beats per minute. The report from both the echocardiogram and the bilateral carotid Doppler ultrasound were preliminary reports. Per telemetry today, sinus bradycardia with a heart rate of 57, asymptomatic. Orthostatic vital signs were obtained on 02/04. The lying blood pressure 141/76, sitting 140/77, standing 138/77. The patient was seen by Dr. Srivastava on 02/04. Per Dr. Srivastava's note dated 02/05/2020, arrange for CT guided biopsy as an outpatient. Alternatively, the patient could have a repeat CT scan in 3 months for followup. If the patient declined the biopsy, second choice would be a repeat CT scan in 3 months with radiographic follow up. Continue current regimen for COPD at home. The patient will be discharged on a cardiac diet. Activity level as tolerated. Follow up with Dr. Enrique Bell, PCP in 1-2 weeks. Follow up with Dr. Srivastava in 1-2 weeks. I have entered an order for Case Management to set up outpatient right upper lobe ultrasound-guided lung biopsy. I asked him to coordinate with Dr. Srivastava and/or his office staff if needed. The patient will await coronavirus results and will be called if his test is positive. Dictated by Saman Sotomayor, BLUEPRINTING AND PHOTOCOPY SUPERVISOR MD ANGÉLICA Ayala/DANIELLE /[id number]
--- NOTE | 2020-02-06 01:11 | Discharge Summary ---
ADDENDUM: Upon review of the patient's bilateral carotid Doppler ultrasound with preliminary report showing possible evidence of significant carotid stenosis on both the right and left carotid arteries. The left carotid mid ICA velocity was 363/83 and the distal ICA left carotid artery was 323/63. The interpreting MD for the bilateral carotid Doppler ultrasound as well as his echocardiogram is Dr. Francis Stevenson. I made contact with Dr. Stevenson and shared with him the CT of the brain results, which had no acute findings. The fact that the patient felt dizzy on admission and was admitted with syncope with fall. Orthostatic vital signs within normal limits. Ejection fraction 65% to 70% on preliminary echo. The patient will need followup for the bilateral carotid Doppler ultrasound results. I called and spoke to the patient's , Gwen, the telephone #[phone]. She is a surgical scrub technologist, very pleasant in accepting of my phone call. I explained to her that the patient does need to follow up with Dr. Stevenson of Cardiology, gave his office number of [phone]. I also explained to Dr. Stevenson after speaking with the patient's that in the past, the patient was diagnosed with an abdominal aortic aneurysm, which his said was about 4-5 years ago and she thinks it is about a size 3 cm. She agreed that she would call Dr. Stevenson office and set up an outpatient appointment as well as ensure that the right upper lobe spiculated lung mass biopsy would get scheduled. I explained to Gwen that the patient should not go back to work at this time. Dictated by Saman Sotomayor, CITY SANITARIAN MD ANGÉLICA Ayala/MJL /[id number]
--- NOTE | 2020-02-06 09:47 | History and Physical ---
ATTENDING PHYSICIAN: Dr. Harsh Srivastava with Pulmonology. PRIMARY CARE PHYSICIAN: Dr. Enrique Bell. CHIEF COMPLAINT: Fall, syncope. HISTORY OF PRESENT ILLNESS: The patient is a 74-year-old man, who fell dizzy on 02/01, passed out hitting his wooden floor, but is unsure if he hit his head. His heard the fall and picked him up, stated he was only out about a minute. He states that after the fall he had left chest wall pain. CT of the brain was negative. The CT of the chest showed spiculated nodule in the right upper lobe of the lung. He admitted for syncope, lung mass, pneumonia, and chest wall pain. 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 He states he knows he does not drink enough water. The patient is seen in room 215 in no acute distress. PAST MEDICAL HISTORY: COPD with use of Trelegy and rescue inhaler, hypertension. He states he was diagnosed with abdominal aortic aneurysm, but is unsure what the size was at that time, peripheral arterial disease. The patient states he has poor circulation in the feet, has been on long-term current use of anticoagulant Plavix, right foot swells more than the left foot at night. PAST SURGICAL HISTORY: Back surgeries. FAMILY HISTORY: Father of a motor vehicle accident when the patient was young. Mother lived to be in her 90s. SOCIAL HISTORY: The patient smoked one-pack per day for 25 years and quit smoking 30 years ago. He drinks two or three beers in the evening usually. He denies any illicit drugs. He lives with his . 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 ALLERGIES: NO KNOWN ALLERGIES. HOME MEDICATIONS: Valacyclovir 1000 mg p.o. daily p.r.n. fever and blisters, albuterol, ProAir HFA inhaler, Plavix 75 mg p.o. 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 daily. REVIEW OF SYSTEMS: A 14-point review of systems completed and was within normal limits except for the following. He does have shortness of breath consistent with COPD, severe chest pain on the left side while in the emergency department with a blood pressure 190/98 right after the fall, last bowel movement was 7/10. He has chronic low back pain. He denies any weight loss, fever, chills, sick contacts, dizziness, bleeding or bruising. OBJECTIVE: VITAL SIGNS: Temperature 98.4, heart rate 80, blood pressure 136/76, respirations 20, oxygen saturation 97% on room air. Height 5 feet 7 inches, weight 145 pounds, BMI 22.7. GENERAL: Lying supine in bed, awake and alert. He is wearing a facial mask due to the pandemic. LUNGS: Generally clear to auscultation. Respiratory pattern even and unlabored. No supplemental oxygen. HEENT: EOMI. NECK: Supple. No JVD. CARDIOVASCULAR: Regular rate and rhythm. No murmur. ABDOMEN: Bowel sounds positive. Soft, nontender. No guarding. EXTREMITIES: Without pitting edema. No clubbing, cyanosis, or marked swelling or signs of DVT. NEUROLOGICAL: GCS 15. Nonfocal. LABORATORY DATA: WBC 10.02, hemoglobin 14.2, hematocrit 42.3, platelets 255,000. PT 12.6, INR 0.89, and PTT 26.2. Sodium 138, potassium 3.7, chloride 108, CO2 23, anion gap 10.7, BUN 15, creatinine 0.89, estimated GFR greater than 60, glucose 99, calcium 9.4, total bilirubin 0.7, AST 23, ALT 17, alkaline phosphatase 69. Creatine kinase 216, CK-MB 3.1, troponin I 0.006. B-type natriuretic peptide 99.4, total protein 6.8, albumin 3.8. Followup cardiac biomarkers were within normal limits x2 other sets. Urinalysis was negative. Coronavirus PCR is pending. Blood cultures x2 show no growth after 24 hours. Urine culture preliminary without growth. CT of the brain was negative for acute intracranial finding, mild chronic microvascular ischemic change, tiny chronic lacunar infarcts of the left caudate head and body. CT of the cervical spine showed no acute abnormalities. CT of the chest showed spiculated nodule in the right upper lobe, which measures approximately 9.5 x 8.5 cm. It is recommended that he have a followup chest CT in 3 months to rule out malignancy. Reticulonodular opacities in the right lower lobe and lingula in tree-in-bud configuration, which may represent inflammatory or infectious process. DIAGNOSTIC STUDIES: The patient had an echocardiogram with ejection fraction of 65% to 70%, calcified aortic valves and a 12-lead ECG that showed sinus rhythm with one PAC with a heart rate of 91. ASSESSMENT AND PLAN: 1. Status post fall with syncope and left chest wall pain, pain control. CT of the brain negative, CT of the chest had shown no lung nodule. We will ask physical therapy to evaluate and treat. We have the orthostatic vital signs. Bilateral carotid Doppler ultrasound, TSH and free T4 in the morning. 2. Right upper lobe lung nodule in an ex-smoker with 25-pack years. CT-guided lung biopsy planned for either tomorrow or the next day. Pulmonology has been consulted. 3. Right lower lobe community-acquired pneumonia, POA. Monitor chest x-ray results. WBC 10.0. He is on azithromycin and Rocephin. Monitor WBC count. He remains afebrile. Denies phlegm. 4. Chronic obstructive pulmonary disease with acute exacerbation. Nebulized treatments p.r.n. 5. Controlled hypertension. Lisinopril and diltiazem. Home medications resumed. Monitor blood pressure. 6. History of abdominal aortic aneurysm. Attempt to obtain records of diagnostic study that showed abdominal aortic aneurysm signs. He believes the study was done here and will need to determine the length of time and span to see if he needs another study to ensure that his AAA has not increased in size. 7. PAD, hold Plavix for now. 8. We will likely have lung biopsy in the next day or two. 9. Chronic low back pain. Pain control. 10. Prophylaxis. Pepcid. Billing code 56438. Time spent 60 minutes. Dictated by Saman Sotomayor, CHANELL MD VERONICA AyalaP/MJL /[id number]
== END 2020-02-05 21:55 | disposition home or self-care (01) | DRG 67 ==
LOC: ER 17:32 → MED/SURG2 21:16
PROVIDERS: ADMIT Internal Medicine; ATTEND Internal Medicine
DX: I65.23 Occlusion and stenosis of bilateral carotid arteries (principal); J18.9 Pneumonia, unspecified organism; J44.0 Chronic obstructive pulmonary disease with (acute) lower respiratory infection; I71.4 Abdominal aortic aneurysm, without rupture; I10 Essential (primary) hypertension; I73.9 Peripheral vascular disease, unspecified; M54.5 Low back pain; G89.29 Other chronic pain; W19.XXXA Unspecified fall, initial encounter; Z11.59 Encounter for screening for other viral diseases; R91.1 Solitary pulmonary nodule; Z87.891 Personal history of nicotine dependence
CPT/HCPCS: 36415; 70450; 71250; 72125; 80048; 80053; 81001; 82550; 82553; 82948; 83735; 83880; 84100; 84439; 84443; 84484; 85025; 85610; 85730; 87040; 87086; 93005; 93306; 93880; 94640; 99284; J0456; J0696; J7030; J7050; U0002